=== PATIENT | female | born 1965 | race Caucasian/White ===

== ENCOUNTER 2016-10-02 18:30 | Emergency (ER) | payer MEDICAID ==
[~2016-10-02] VITALS: Ht 162.6 cm; Wt 52.0 kg
[2016-10-02 18:34] VITALS: BP 86/56; PULSE 80; RESP 16; TEMP 97.9; O2SAT 99
[2016-10-02] MEDS ORDERED: LYRI100C PO (18:43)
[2016-10-02] MEDS ORDERED: CYMB60CA PO (18:43)
--- NOTE | 2016-10-02 18:53 | PD ---
HPI Chief Complaint: Fall Time Seen by Provider: 18:51 Travel History International Travel<30 days: No Contact w/Intl Traveler<30days: No Traveled to known affect area: No History of Present Illness HPI 51-year-old female presents to the ED for evaluation of 5 day history of "tailbone pain." Onset after falling onto a tile floor while attempting to sit on the edge of the bed. Patient has been ambulatory since the accident. She endorses tingling down the back of the legs bilaterally. She denies numbness, weakness, loss of ROM, saddle anesthesia or incontinence. She's been treating with Lortab given to her by her boyfriend, which does improve her symptoms. Last dose ~3pm. She sought treatment because she "feels like the pain changed today" but is unable to describe the changes. Patient states that she was dropped off by her boyfriend today. PFSH Past Medical History Anxiety: Yes Depression: Yes Diminished Hearing: No Tetanus Vaccination: < 5 Years Influenza Vaccination: No ?: Not Past Surgical History Hysterectomy: Yes Social History Alcohol Use: No Tobacco Use: Yes (1 PPD) Substance Use: No Allergies-Medications (Allergen,Severity, Reaction): Coded Allergies: No Known Allergies (Unverified , 10/02/16) Reported Meds & Prescriptions Reported Meds & Active Scripts Active Lortab (Hydrocodone-Acetaminophen) 7.5-325 Mg Tab 1 Tab PO Q6H PRN Reported Lyrica (Pregabalin) 100 Mg Cap 100 Mg PO DAILY Cymbalta DR (Duloxetine HCl) 60 Mg Capdr 60 Mg PO DAILY Review of Systems Except as stated in HPI: all other systems reviewed are Neg Physical Exam Narrative GENERAL: Well-nourished, well-developed white female in no acute distress. SKIN: Focused skin assessment warm/dry. There are a few old, superficial, crusted, linear lacerations on the upper back. No signs of infection. HEAD: Normocephalic. EYES: No scleral icterus. No injection or drainage. NECK: Supple, trachea midline. No JVD or lymphadenopathy. CARDIOVASCULAR: Regular rate and rhythm without murmurs, gallops, or rubs. RESPIRATORY: Breath sounds clear and equal bilaterally. No accessory muscle use. GASTROINTESTINAL: Abdomen soft, non-tender, nondistended. Active bowel sounds. MUSCULOSKELETAL: No cyanosis, or edema. 5/5 strength of plantar flexion, dorsiflexion, knee and hip flexion. NEUROLOGICAL: Awake and alert. Cranial nerves II through XII intact. Motor and sensory grossly within normal limits. 5/5 muscle strength in all muscle groups. Normal speech. BACK: No obvious deformity. Tender to palpation of the coccyx. Mild ecchymosis. No edema. No CVA tenderness. No midline tenderness. Data Data Last Documented VS Vital Signs Date Time Temp Pulse Resp B/P Pulse Ox O2 Delivery O2 Flow Rate FiO2 10/02/16 18:34 97.9 80 16 86/56 99 Orders Sacrum And Coccyx (10/02/16 ) Acetamin-Hydrocod 325-5 Mg ([place]uson 5-325 (10/02/16 19:30) MDM Medical Decision Making Medical Screen Exam Complete: Yes Emergency Medical Condition: Yes Differential Diagnosis coccygeal fracture versus contusion versus musculoskeletal pain versus compression fracture versus other Narrative Course 51-year-old female presents to the ED for evaluation of 5 day history of "tailbone pain." Onset after falling onto a tile floor while attempting to sit on the edge of the bed. Patient has been ambulatory since the accident. She endorses tingling down the back of the legs bilaterally. She denies numbness, weakness, loss of ROM, saddle anesthesia or incontinence. She's been treating with Lortab given to her by her boyfriend, which does improve her symptoms. 51- year-old female presents to the ED for evaluation of 5 day history of "tailbone pain." Onset after falling onto a tile floor while attempting to sit on the edge of the bed. Patient has been ambulatory since the accident. She endorses tingling down the back of the legs bilaterally. She denies numbness, weakness, loss of ROM, saddle anesthesia or incontinence. She's been treating with Lortab given to her by her boyfriend, which does improve her symptoms. Last dose ~3pm. She sought treatment because she "feels like the pain changed today" but is unable to describe the changes. Patient states that she was dropped off by her boyfriend today vitals reviewed. Physical exam reveals tenderness to palpation of the coccyx. Mild ecchymosis. No edema. No focal neural deficits. No midline TTP of the spine. Patient was administered PO Lortab. Xrays reveal a comminuted , mildly displaced fracture of the sacrococcygeal junction. I discussed the results of the x-ray with the patient. I instructed her to utilize a doughnut pillow. I prescribed a short course of narcotic pain medications. Patient states that she is flying to [place] tomorrow and will follow-up on an outpatient basis there. She indicated understanding of the discharge instructions and is agreeable to the care plan. Patient is stable and discharged home. Diagnosis Primary Impression: Coccygeal fracture Qualified Code: S32.2XXA - Closed fracture of coccyx, initial encounter Referrals: Primary Care Physician Patient Instructions: Coccyx Injury (ED), General Instructions Additional Instructions: Rest, hydrate. Use an OTC donut cushion for sitting. Leaning forward also takes pressure off the coccyx. Apply ice to the area 10-15 minutes a few times per day. Take an OTC stool softener daily to help with pain of bowel movements. Take pain medications as prescribed for pain. Do not drive while taking pain medications. Follow up with your primary care provider. Return to the ED for any urgent or emergent medical condition. Med/Other Pt SpecificInfo: Prescription(s) given Scripts Hydrocodone-Acetaminophen (Lortab)7.5-325 Mg Tab1 Tab PO Q6H PRN (PAIN) #15 TAB Ref 0 Prov:Ashely Jaime MD 10/02/16 Disposition: 01 DISCHARGE HOME Condition: Stable Jess Baer October 02, 2016 18:53
[2016-10-02] MEDS ORDERED: ACETAMINOPHEN/HYDROcodone 325 MG/5 MG TAB PO ONE (19:30)
[2016-10-02] MEDS ORDERED: HYDR-3534 PO (19:52)
--- NOTE | 2016-10-02 19:54 | RADHPO ---
EXAM DATE/TIME: 10/02/2016 19:23 [facility] COMPARISON: No previous studies available for comparison. INDICATIONS : Patient fell five days ago on her tile floor and hit rear end. MEDICAL HISTORY : None. SURGICAL HISTORY : None. ENCOUNTER: Initial ACUITY: 4 - 6 days PAIN SCORE: 8/10 LOCATION: Bilateral Sacrum/coccyx FINDINGS: There is an acute, mildly comminuted fracture near the sacrococcygeal junction noted. Approximately 3 .5 mm of anterior displacement/step-off noted, best seen on the lateral. CONCLUSION: Mildly comminuted and mildly displaced fracture near the sacrococcygeal junction. Devon Guevara MD on October 02, 2016 at 19:52 Board Certified Radiologist. This report was verified electronically.
== END 2016-10-02 20:24 | disposition home or self-care (01) ==
LOC: PHEFT 18:30
DX: S32.2XXA Fracture of coccyx, initial encounter for closed fracture (principal); F41.9 Anxiety disorder, unspecified; F32.9 Major depressive disorder, single episode, unspecified; W06.XXXA Fall from bed, initial encounter
CPT/HCPCS: 72220; 99283